=== PATIENT | female | born 1960 ===

== ENCOUNTER 2017-11-24 15:02 | Emergency (ER) | payer SELFPAY ==
[2017-11-24 15:02] VITALS: BMI 25.8
[2017-11-24 15:10] VITALS: PULSE 63; O2SAT 98
--- NOTE | 2017-11-24 15:35 | RAD ---
HISTORY: r/o infiltrate COMPARISON: No prior. TECHNIQUE: Chest PA and lateral FINDINGS: LUNGS: Minor left basilar atelectasis PLEURA: No significant pleural effusion identified. No pneumothorax apparent. CARDIOVASCULAR: Normal. OSSEOUS STRUCTURES: No significant abnormalities. VISUALIZED UPPER ABDOMEN: Normal. OTHER FINDINGS: None. IMPRESSION: Minor left basilar atelectasis
[2017-11-24 16:04] VITALS: BP 118/60; RESP 65; TEMP 98
--- NOTE | 2017-11-24 17:11 | C.PDOC ---
History Of Present Illness 57 year old female presents to the ER with a complaint of a productive cough for the past 5 days. Patient has not taken anything for the symptoms. Denies chest pain, SOB, sick contact, or recent travel. Chief Complaint (Nursing): Cough, Cold, Congestion History Per: Patient History/Exam Limitations: no limitations Onset/Duration Of Symptoms: Days Current Symptoms Are (Timing): Still Present Location Of Pain: None Sick Contacts (Context): None Associated Symptoms: Cough, Sputum. denies: Other (Chest pain, SOB) Ear Symptoms: Bilateral: None Recent travel outside of the [place]: No Past Medical History Reviewed: Historical Data, Nursing Documentation, Vital Signs Vital Signs: Last Vital Signs Temp 98 F 11/24/17 16:03 Pulse 63 11/24/17 15:07 Resp 65 H 11/24/17 16:03 BP 118/60 11/24/17 16:03 Pulse Ox 98 11/24/17 17:12 Surgical History: Cholecystectomy Family History: States: Unknown Family Hx - Social History Hx Alcohol Use: No Hx Substance Use: No - Immunization History Hx Tetanus Toxoid Vaccination: Yes Hx Influenza Vaccination: No Hx Pneumococcal Vaccination: No Review Of Systems Constitutional: Negative for: Fever, Chills Cardiovascular: Negative for: Chest Pain Respiratory: Positive for: Cough, Sputum. Negative for: Shortness of Breath Gastrointestinal: Negative for: Vomiting Physical Exam - Physical Exam Appears: Non-toxic Skin: Normal Color, Warm, Dry Head: Atraumatic, Normacephalic Eye(s): bilateral: Normal Inspection Ear(s): Bilateral: Normal Oral Mucosa: Moist Throat: Normal, No Erythema, No Exudate Chest: Symmetrical, No Tenderness Cardiovascular: Rhythm Regular Respiratory: Normal Breath Sounds, No Rales, No Rhonchi, No Wheezing Neurological/Psych: Oriented x3, Normal Speech ED Course And Treatment O2 Sat by Pulse Oximetry: 98 (Room air) Pulse Ox Interpretation: Normal Progress Note: CXR ordered. Disposition - Disposition Referrals: [facility] [Outside] [facility] [Outside] Disposition: HOME/ ROUTINE Disposition Time: 15:35 Condition: GOOD Additional Instructions: Thank you for letting us take care of you today. The emergency medical care you received today was directed at your acute symptoms. If you were prescribed any medication, please fill it and take as directed. It may take several days for your symptoms to resolve. Return to the Emergency Department if your symptoms worsen, do not improve, or if you have any other problems. Please contact your doctor or call one of the physicians/clinics you have been referred to that are listed on the Patient Visit Information form that is included in your discharge packet. Bring any paperwork you were given at discharge with you along with any medications you are taking to your follow up visit. Our treatment cannot replace ongoing medical care by a primary care provider (PCP) outside of the emergency department. Thank you for allowing the [facility] team to be part of your care today. Follow up with the clinic in 3-5 days for re-evaluation and further management. Dhiraj por dejarnos atenderlo hoy. La atencin mdica de emergencia que recibi hoy estaba dirigida a rosenda sntomas agudos. Si le prescribieron algn medicamento, llnelo y tome segn las indicaciones. Rosenda sntomas pueden tardar varios thorne en resolverse. Regrese al Departamento de Emergencia si rosenda s ntomas empeoran, no mejoran o si tiene algn otro problema. Comunquese con mota mdico o llame a heidi de los mdicos / clnicas a los que trinidad sido referido y que figura en el formulario de Informacin de visita del paciente que se incluye en mota paquete de prince. Traiga todos los documentos que recibi al momento del prince junto con los medicamentos que est tomando en mota visita de seguimiento. Nuestro tratamiento no puede reemplazar la atencin m dica en curso por parte de un proveedor de atencin primaria (PCP) fuera del departamento de emergencias. Dhiraj por permitir que el equipo de [facility] sea parte de mota cuidado hoy. Alem un seguimiento con la clnica en 3-5 thorne para la reevaluacin y la administracin adicional. Prescriptions: Azithromycin [Zithromax] 250 mg PO DAILY #6 tab Instructions: Upper Respiratory Infection (ED) Forms: Gen Discharge Inst Macedonian Print Language: IRANIAN - Clinical Impression Clinical Impression: Upper respiratory infection - Scribe Statement The provider has reviewed the documentation as recorded by the Scribgloria Vinson All medical record entries made by the Scribe were at my direction and personally dictated by me. I have reviewed the chart and agree that the record accurately reflects my personal performance of the history, physical exam, medical decision making, and the department course for this patient. I have also personally directed, reviewed, and agree with the discharge instructions and disposition.
== END 2017-11-24 16:15 | disposition home or self-care (01) ==
LOC: C.ER 15:02
DX: J06.9 Acute upper respiratory infection, unspecified (principal)

== ENCOUNTER 2018-01-08 08:44 | Day surgery (SDC) | payer SELFPAY ==
[2017-12-14 08:38] VITALS: BMI 25.4
[2018-01-08 09:29] VITALS: RESP 18
--- NOTE | 2018-01-08 11:28 | CP.SDSHP ---
Same Day Surgery H & P - History Proposed Procedure: US guided FNA of left thyroid mass Pre-Op Diagnosis: left thyroid mass - Allergies Allergies: Allergies No Known Allergies Allergy (Verified 11/24/17 15:10) - Physical Exam Vital Signs: Vital Signs 01/08/18 09:17 Temperature 97.6 F Pulse Rate 55 L Respiratory 18 Rate Blood Pressure 100/61 O2 Sat by Pulse 98 Oximetry Mental Status: Alert & Oriented x3 Neuro: WNL Heart: WNL Lungs: WNL - Impression Impression: Pt with a complex left thyroid mass. Plan US guided FNA of left thyroid mass. Pt. Evaluated Today:Candidate for Anesthesia & Procedure: No Short Stay Discharge - Short Stay Discharge Admitting Diagnosis/Reason for Visit: NONTOXIC SINGLE THYROID NODULE Disposition: HOME/ ROUTINE
--- NOTE | 2018-01-08 11:29 | PCM.SURG1 ---
Surgeon's Initial Post Op Note - Surgeon's Notes Surgeon: Luis Cho MD Assisted Living Home Director: NONE Type of Anesthesia: Local Pre-Operative Diagnosis: Left thyroid mass Operative Findings: 4.8 cm complex left thyroid mass extending into isthmus. Post-Operative Diagnosis: Left thyroid mass Operation Performed: US guided FNA of left thyroid mass Specimen/Specimens Removed: 25 g FNA x 5 passes Estimated Blood Loss: EBL {In ML}: 1 Blood Products Given: N/A Drains Used: No Drains Post-Op Condition: Good Date of Surgery/Procedure: 01/08/18 Time of Surgery/Procedure: 11:25
[2018-01-08 11:55] VITALS: BP 93/63; PULSE 53; TEMP 98; O2SAT 100
--- NOTE | 2018-01-09 11:32 | US ---
PROCEDURE: Date of Procedure: 01/08/2018 PROCEDURE: 1. Ultrasound guided FNA of left thyroid nodule, CPT 99976 2. Ultrasound guidance for FNA, 71018 Medications: 3cc 1% Lidocaine HISTORY: Enlarged left thyroid mass. TECHNIQUE: Following informed consent and procedure time-out, a limited ultrasound patient's neck confirmed the presence of a 3.87 cm x 1.8 cm complex left thyroid nodule which is predominantly solid. After the patient's neck was prepped and draped in the usual sterile fashion, the skin was anesthetized with 1% lidocaine. Ultrasound-guided fine needle aspiration was then performed of the dominant left thyroid nodule. A total of 5 passes were made into the nodule with 25 gauge needle under ultrasound guidance. The FNA specimen was sent for routine pathology. Post biopsy ultrasound showed no hematoma. IMPRESSION: Ultrasound-guided FNA of the dominant left thyroid nodule.
== END 2018-01-08 11:57 | disposition home or self-care (01) ==
LOC: C.SPRAD 08:44
PROVIDERS: ATTEND Radiology Vascular & Interventional Radiology
DX: E04.1 Nontoxic single thyroid nodule (principal)

== ENCOUNTER 2018-06-10 08:51 | Day surgery (SDC) | payer SELFPAY ==
[2017-12-14 08:38] VITALS: BMI 25.4
--- NOTE | 2018-06-10 10:16 | CP.SDSHP ---
Same Day Surgery H & P - History Proposed Procedure: US guided FNA of left thyroid nodule Pre-Op Diagnosis: Thyroid nodule - Allergies Allergies: Allergies No Known Allergies Allergy (Verified 11/24/17 15:10) - Physical Exam Mental Status: Alert & Oriented x3 - Impression Impression: Pt with large thyroid nodule. Plan US guided FNA. Pt. Evaluated Today:Candidate for Anesthesia & Procedure: No Short Stay Discharge - Short Stay Discharge Admitting Diagnosis/Reason for Visit: NONTOXIC SINGLE THYROID NODULE Disposition: HOME/ ROUTINE
--- NOTE | 2018-06-10 10:26 | PCM.SURG1 ---
Surgeon's Initial Post Op Note - Surgeon's Notes Surgeon: Luis Cho MD School Adjustment Counselor: NONE Type of Anesthesia: Local Pre-Operative Diagnosis: Large thyroid nodule Operative Findings: US showed large thyroid nodule Post-Operative Diagnosis: Large thyroid nodule Operation Performed: US guided FNA Specimen/Specimens Removed: 25 g FNA x 5 Estimated Blood Loss: EBL {In ML}: 1 Blood Products Given: N/A Drains Used: No Drains Post-Op Condition: Good Date of Surgery/Procedure: 06/10/18 Time of Surgery/Procedure: 10:20
--- NOTE | 2018-06-10 12:01 | US ---
PROCEDURE: Date of Procedure: 06/10/2018 PROCEDURE: 1. Ultrasound guided FNA of left thyroid nodule, CPT 71042 2. Ultrasound guidance for FNA, 04696 Medications: 3cc 1% Lidocaine HISTORY: Enlarged left thyroid nodule. TECHNIQUE: Following informed consent and procedure time-out, a limited ultrasound patient's neck confirmed the presence of a complex left thyroid nodule which is predominantly solid. After the patient's neck was prepped and draped in the usual sterile fashion, the skin was anesthetized with 1% lidocaine. Ultrasound-guided fine needle aspiration was then performed of the dominant left thyroid nodule. A total of 5 passes were made into the nodule with 25 gauge needle under ultrasound guidance. The FNA specimen was sent for routine pathology and genetics. Post biopsy ultrasound showed no hematoma. IMPRESSION: Ultrasound-guided FNA of the dominant left thyroid nodule.
== END 2018-06-10 12:06 | disposition home or self-care (01) ==
LOC: C.SPRAD 08:51
PROVIDERS: ATTEND Radiology Vascular & Interventional Radiology
DX: E04.1 Nontoxic single thyroid nodule (principal)

== ENCOUNTER 2018-08-06 11:32 | Outpatient (CLI) | payer SELFPAY | END 2018-08-06 11:33 | disposition home or self-care (01) | LOC: C.MAMMO 11:32 | DX: Z12.31 Encounter for screening mammogram for malignant neoplasm of breast (principal) ==